=== PATIENT | female | born 2000 ===

== ENCOUNTER 2021-04-10 11:58 | Inpatient (IN) | payer OTHER ==
[~2021-04-10] VITALS: Ht 162.6 cm; Wt 73.9 kg
[2021-04-10] MEDS ORDERED: PRENATAL + DHA1 EAC1 (12:40)
== END 2021-04-12 13:58 | disposition home or self-care (01) | DRG 807 ==
LOC: LDR 11:58 → OB/GYN 11:58
PROVIDERS: ADMIT Obstetrics & Gynecology; ATTEND Obstetrics & Gynecology
PROC: 10E0XZZ Delivery of Products of Conception, External Approach (ICD-10-PCS; principal; 2021-04-10)
PROC: 10907ZC Drainage of Amniotic Fluid, Therapeutic from Products of Conception, Via Natural or Artificial Opening (ICD-10-PCS; 2021-04-10)
PROC: 4A1HXFZ Monitoring of Products of Conception, Cardiac Rhythm, External Approach (ICD-10-PCS; 2021-04-10)
DX: O80 Encounter for full-term uncomplicated delivery (principal); Z37.0 Single live birth; Z3A.39 39 weeks gestation of pregnancy